=== PATIENT | female | born 1985 | race Caucasian/White ===

== ENCOUNTER 2016-11-11 13:31 | Emergency (ER) | payer SELFPAY ==
[~2016-11-11] VITALS: Ht 170.2 cm; Wt 68.0 kg
[2016-11-11] MEDS ORDERED: ALBU18HF IH (14:59)
[2016-11-11] MEDS ORDERED: SULF1TAB24 PO (14:59)
[2016-11-11] MEDS ORDERED: GUAI118L13 PO (14:59)
--- NOTE | 2016-11-11 15:02 | PHYS DOC ---
General Chief Complaint: COUGH Stated Complaint: COUGH/FEVER Time Seen by MD: 13:44 Source: patient, family Exam Limitations: no limitations Problems: History of Present Illness Initial Comments Patient is a 31-year-old female brought to the ED by her father with cough and fever. Patient states that for about 10 days she's had nasal congestion facial pain. She's had a cough for the past week dry initially with yellow thick purulent discharge. She has a sore throat for the past several days which has prevented her from eating solid foods however she tolerates liquids okay. She claims a fever last night with temperature of 104. She's had intermittent headaches and myalgias denies neck pain or stiffness no rash. Benj-rsh-qbkrqdk medications have helped some. She was seen on post earlier today rapid strep was negative and labs were drawn. She was advised to follow-up however does not wish to wait. In emergency department the patient is afebrile she has stable vital signs. Timing/Duration: 1 week, getting worse Severity: severe Associated Symptoms: cough, diaphoresis, fever/chills, headaches, malaise, other Allergies: Coded Allergies: No Known Drug Allergies (Unverified , 11/11/16) Past Medical History Medical History: asthma Surgical History: noncontributory Social History Smoker: non-smoker Alcohol: none Drugs: none Review of Systems Constitutional: see HPI Respiratory: see HPI Cardiovascular: denies chest pain, denies palpitations Gastrointestinal: denies nausea, denies vomiting Musculoskeletal: denies back pain, denies joint swelling, denies neck pain Psychiatric/Neurological: see HPI Physical Exam General Appearance: WD/WN, no apparent distress Eyes: bilateral eye normal inspection, bilateral eye PERRL, bilateral eye abnormal EOM Ear, Nose, Throat: hearing grossly normal, normal pharynx (green nasal and thick green postnasal drip with left sided pharyngeal erythema with exudate. Serous fluid noted bilaterally right greater than left, tonsils are absent no palpable access noted airway is patent. 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 Symptoms for over a week, fever and sinus infection/pharyngitis symptoms possibly viral but we will treat with antimicrobials. Patient agrees to follow-up with her doctor as scheduled. Departure Time of Disposition: 15:00 Disposition: HOME, SELF-CARE Diagnosis: left lower lobe pneumonia, history of asthma Condition: STABLE Patient Instructions: Pneumonia, Adult, Emkf-[id number] Additional Instructions: Off work through November 14, note given. Rest, no strenuous activity. Aggressive hydration with Gatorade or water. Mrzf-crq-[id number] Tylenol, ibuprofen, Benadryl as needed. Prescription: Bactrim DS, guaifenesin with codeine syrup, albuterol metered- dose inhaler, use as directed. Take medications with food to avoid nausea, vomiting, and GI discomfort. Increase fluid intake and take imqw-xty-owbowyx stool softeners to avoid opiate associated constipation. Follow-up with your doctor in 5-7 days for recheck. Return to ED with new or changing symptoms. MAISHA LAM DO Nov 11, 2016 15:02
[2016-11-11 15:10] VITALS: BP 122/73
== END 2016-11-11 15:10 | disposition home or self-care (01) ==
LOC: ER 13:31
DX: J18.9 Pneumonia, unspecified organism (principal); J45.909 Unspecified asthma, uncomplicated
CPT/HCPCS: 99283

== ENCOUNTER → 2016-11-24 | Outpatient (CLI) | payer SELFPAY ==
[2016-11-11 15:10] VITALS: BP 122/73
[~2016-11-24] MED LIST: ALBU18HF IH; GUAI118L13 PO; SULF1TAB24 PO
--- NOTE | 2016-11-24 10:27 | RAD ---
Examination: Frontal view of the chest with left RIBS History: History of pneumonia, heard a pop in the ribs, left rib pain Comparison: None available Findings: The cardiomediastinal silhouette grossly appears unremarkable. There is no acute infiltrate or visualized pneumothorax identified. No evidence of displaced left rib fracture identified. Impression: 1. No acute cardiopulmonary findings. 2. No evidence of displaced left rib fracture.
== END | disposition home or self-care (01) ==
LOC: DXRADRC 09:10
PROVIDERS: ATTEND Physician Assistant Medical
DX: R07.81 Pleurodynia (principal); Z87.01 Personal history of pneumonia (recurrent)
CPT/HCPCS: 71101

== ENCOUNTER 2017-11-19 22:11 | Emergency (ER) | payer SELFPAY ==
[~2017-11-19] VITALS: Ht 170.2 cm; Wt 70.3 kg
[2017-11-19 22:28] VITALS: BP 150/83
[2017-11-19] MEDS: predniSONE 20 MG TABLET PO ONE (22:54)
[2017-11-19] MEDS: IPRATRPIUM/ALBUTEROL 0.5/2.5MG 3 ML NEBU. NEB ONE (23:21)
[2017-11-19] MEDS ORDERED: ALBUTEROL SULFATE 8GM INHALER. ONE (23:24)
[2017-11-19] MEDS ORDERED: GUAI-105 PO (23:25)
[2017-11-19] MEDS ORDERED: PRED50TA PO (23:25)
[2017-11-19] MEDS ORDERED: PROM118S5 PO (23:25)
[2017-11-19] MEDS ORDERED: ALBUTEROL SULFATE 8GM INHALER. INH ONE (23:30)
--- NOTE | 2017-11-19 23:58 | RAD ---
PA and lateral chest radiographs 11/19/2017 Clinical History: Cough, congestion and fever. PA and lateral digital radiographs of the chest were obtained. Comparison study is dated 11/24/2016. The cardiac and mediastinal silhouettes are within normal limits in size and configuration. No pulmonary infiltrate is seen. No pleural effusion or pneumothorax is noted. The osseous structures are grossly intact. Impression: No radiographic evidence of active cardiopulmonary disease. Electronically signed by: Federico Perdomo MD (11/19/2017 11:55 PM) [facility]
--- NOTE | 2017-11-20 02:59 | ED.ADGEN ---
Past History Past Medical History: Asthma, Pneumonia Past Surgical History: Alcohol Use: Occasionally Drug Use: None Adult General Chief Complaint Chief Complaint Fever, cough HPI HPI Patient is a 32-year-old female with history of asthma who presents with fever, chills, myalgias or arthralgias and shortness of breath. Symptom onset 5 days ago. Is worse this evening with difficulty sleeping despite taking over-the- counter medications. No oher acute symptoms or complaints. Patient is a nonsmoker.[] Review of Systems Review of Systems Review symptoms as per history of present illness. All other review symptoms are negative All other systems were reviewed and found to be within normal limits, except as documented in this note. Current Medications Current Medications Current Medications Medications (Trade) Dose Ordered Sig/Sammy Start Time Stop Time Status Last Admin Dose Admin Albuterol Sulfate (Ventolin Hfa Inhaler) 1 puff 1X ONCE 11/19/17 23:30 11/20/17 00:01 DC Albuterol/ Ipratropium (Duoneb) 3 ml 1X ONCE 11/19/17 23:00 11/19/17 23:01 DC 11/19/17 23:21 3 ML Prednisone (Prednisone) 60 mg 1X ONCE 11/19/17 23:00 11/19/17 23:01 DC 11/19/17 22:54 60 MG Allergies Allergies Allergies Coded Allergies Type Severity Reaction Last Updated Verified No Known Drug Allergies 11/11/16 No Physical Exam Physical Exam Constitutional: Well developed, well nourished, no acute distress, non-toxic appearance. [] HENT: Normocephalic, atraumatic, bilateral external ears normal, oropharynx moist, no oral exudates, nose gesturing, rhinorrhea. [] Eyes: PERRLA, EOMI, conjunctiva normal, no discharge. [] Neck: Normal range of motion, no tenderness, supple, no stridor. [] Cardiovascular:Heart rate regular rhythm, no murmur [] Lungs & Thorax: Patient's nonlabored, mildly diminished breath sounds bilaterally coarse respiratory and expiratory wheezes[] Abdomen: Bowel sounds normal, soft, no tenderness, no masses, no pulsatile masses. [] Skin: Warm, dry, no erythema, no rash. [] Back: No tenderness, no CVA tenderness. [] Extremities: No tenderness, no cyanosis, no clubbing, ROM intact, no edema. [] Neurologic: Alert and oriented X 3, normal motor function, normal sensory function, no focal deficits noted. [] Psychologic: Affect normal, judgement normal, mood normal. [] Current Patient Data Vital Signs Vital Signs Date Time Temp Pulse Resp B/P (MAP) Pulse Ox O2 Delivery O2 Flow Rate FiO2 11/19/17 23:21 99 Room Air 11/19/17 22:28 99.6 85 20 EKG EKG [] Radiology/Procedures Radiology/Procedures [] Course & Med Decision Making Course & Med Decision Making Pertinent Labs and Imaging studies reviewed. (See chart for details) [Significant improvement with treatment. Will continue supportive care with PCP follow-up. Return precautions reviewed.] Final Impression Final Impression [#1 upper respiratory tract infection #2 asthma exacerbation] Dragon Disclaimer Dragon Disclaimer This electronic medical record was generated, in whole or in part, using a voice recognition dictation system. ACE LARA DO Nov 20, 2017 02:59
== END 2017-11-19 23:57 | disposition home or self-care (01) ==
LOC: ER 22:11
DX: J06.9 Acute upper respiratory infection, unspecified (principal); J45.901 Unspecified asthma with (acute) exacerbation
CPT/HCPCS: 71046; 94640; 99284; J7512; J7620

== ENCOUNTER 2020-01-11 07:26 | Emergency (ER) | payer SELFPAY ==
[~2020-01-11] VITALS: Ht 170.2 cm; Wt 59.0 kg
[~2020-01-11 07:26] MED LIST changes: -ALBU18HF IH; +ALBU2.5V8 IH; +GUAI-105 PO; +PRED50TA PO; +PROM118S5 PO
[2020-01-11 07:30] VITALS: BP 122/88
--- NOTE | 2020-01-11 08:10 | PHYS DOC ---
Past History Past Medical History: Asthma, Pneumonia Past Surgical History: (X2), Other (Carpal tunnel) Alcohol Use: Occasionally Drug Use: None Adult General Chief Complaint Chief Complaint: ABDOMINAL PAIN HPI HPI Patient is a pleasant 34-year-old female who presents with right upper quadrant pain. Onset was approximately 11 days ago without any known inciting event or trauma. Patient has been utilizing heating pad and alternating Tylenol, ibu profen, and recently incorporated probiotics into her daily routine without significant relief. Eating makes worse. Pain is sharp and focal to right upper quadrant without radiation. Timing of symptoms has waxed and waned. This has been affecting her throughout the day and her ability to sleep. She is unsure if certain foods make worse that she has been afraid to eat anything over the past 24 to 48 hours. She has been afebrile, has no significant past medical issues, is not on any blood thinners, no COVID-19 contact Review of Systems Review of Systems Fourteen body systems of review of systems have been reviewed. See HPI for pertinent positives and negative responses, other drake all other systems are negative, non-pertinent or non-contributory Allergies Allergies Allergies Coded Allergies Type Severity Reaction Last Updated Verified No Known Drug Allergies 11/11/16 No Physical Exam Physical Exam Constitutional: Well developed, well nourished, no acute distress, non-toxic appearance. HENT: Normocephalic, atraumatic, bilateral external ears normal, oropharynx moist, no oral exudates, nose normal. Eyes: PERRLA, EOMI, conjunctiva normal, no discharge. Neck: Normal range of motion, no tenderness, supple, no stridor. Cardiovascular: Heart rate regular, sinus rhythm, no murmurs rubs or gallops Lungs & Thorax: Bilateral breath sounds clear to auscultation Abdomen: Bowel sounds normal, soft, right upper quadrant tenderness to palpation positive Christy sign without guarding or rebound, negative Rovsing sign, negative McBurney point tenderness, no masses, no pulsatile masses. Nonsurgical abdomen, no peritoneal signs Skin: Warm, dry, no erythema, no rash. Back: No tenderness, no CVA tenderness. Extremities: No tenderness, no cyanosis, no clubbing, ROM intact, no edema. Neurologic: Alert and oriented X 3, grossly normal motor & sensory function, no focal deficits noted. Psychologic: Affect normal, judgement normal, mood normal. Current Patient Data Vital Signs Vital Signs Date Time Temp Pulse Resp B/P (MAP) Pulse Ox O2 Delivery O2 Flow Rate FiO2 01/11/20 07:30 97.9 118 16 122/88 (99) 98 Room Air EKG EKG [] Radiology/Procedures Radiology/Procedures PROCEDURE: ABDOMEN LTD EXAM: ABDOMINAL ULTRASOUND. HISTORY: Right upper quadrant abdominal pain. COMPARISON: None. FINDINGS: Sonographic evaluation of the right upper quadrant abdomen was performed. The liver appears normal in parenchymal echotexture. There are no focal lesions. Gallbladder contains both sludge and multiple large shadowing gallstones, measuring up to 2.7 cm in diameter. There is a positive sonographic Christy sign. Gallbladder wall is mildly thickened to 3.8 mm. The common duct measures 3 mm. The visualized portions of the head of the pancreas reveal no abnormality. The right kidney measures 10.6 x 4.8 x 4.3 cm. Cortical thickness and echogenicity are preserved. There is mild right hydronephrosis. Visualized portion of the IVC is normal. IMPRESSION: 1. Sonographic findings consistent with acute cholecystitis. Electronically signed by: Rony Alva MD (01/11/2020 8:43 AM) [id number] Heart Score HEART Score for Chest Pain: HEART Score for Chest Pain Response (Comments) Value History Slighlty/Non-Suspicious 0 ECG Normal 0 Age < 45 0 Risk Factors No Risk Factors 0 Total 0 Risk Factors: Risk Factors: DM, Current or recent (<one month) smoker, HTN, HLP, family history of CAD, obesity. Risk Scores: Risk Factors: DM, Current or recent (<one month) smoker, HTN, HLP, family history of CAD, obesity. Course & Med Decision Making Course & Med Decision Making Pertinent Labs and Imaging studies reviewed. (See chart for details) Discussed most likely diagnosis of acute cholecystitis. On-call surgeon at [facility] called and case discussed. Given patient is hemodynamically stable, well-appearing and nontoxic; joint decision made to discharge home with extremely close outpatient follow-up with planned surgical intervention to follow I discussed proposed plan of care with patient. She was also amenable to this, she would like time to find childcare and deal with family matters at home prior to surgical intervention and much prefers discharge home with extremely close follow-up. With all of this said, I did stress the severity of this diagnosis and importance of extremely close follow-up and surgical removal of her gallbladder. Extremely strict return precautions were discussed with good understanding, all questions and concerns addressed prior to ER departure Tarun Disclaimer Tarun Disclaimer This electronic medical record was generated, in whole or in part, using a voice recognition dictation system. Departure Departure: Impression: Primary Impression: Acute cholecystitis Disposition: 01 DC HOME SELF CARE/HOMELESS Condition: STABLE Referrals: PCP,HERB (PCP) JLUIS COOL MD This is the surgeon I spoke to at [facility]. Please call immediately after ER departure to schedule outpatient follow-up and surgical removal of your gallbladder Patient Instructions: Cholecystitis Additional Instructions: Please see the attached resources regarding cholecystitis Also, please see the information for Dr. Jluis Henry. He is the surgeon I spoke to at [facility]. Please call number provided to schedule outpatient follow-up in surgical intervention for your gallbladder As discussed at length prior to ER departure, please report immediately to [facility] ER if any concerning signs or symptoms present prior to outpatient follow-up/surgical removal It was a pleasure to take care of you and I wish you a speedy recovery! JUDY COOL DO Jan 11, 2020 08:10
[2020-01-11 08:21] LABS: BASO # 0.1 x10^3/uL (0.0-0.2); BASO % 1 % (0-3); EOS # 0.3 x10^3/uL (0.0-0.7); EOS % 3 % (0-3); HEMOGLOBIN 17.1 g/dL (12.0-15.5); LYMPH # 1.7 x10^3/uL (1.0-4.8); LYMPH % 20 % (24-48); MEAN CORPUSCULAR HEMOGLOBIN 31 pg (25-35); MEAN CORPUSCULAR HGB CONC 34 g/dL (31-37); MEAN CORPUSCULAR VOLUME 93 fL (79-100); MONO # 0.5 x10^3/uL (0.0-1.1); MONO % 6 % (0-9); NEUT # 5.9 x10^3uL (1.8-7.7); NEUT % 71 % (31-73); PLATELET COUNT 348 x10^3/uL (140-400); RED BLOOD COUNT 5.47 x10^6/uL (3.50-5.40); RED CELL DISTRIBUTION WIDTH 13.9 % (11.5-14.5); WHITE BLOOD COUNT 8.4 x10^3/uL (4.0-11.0)
[2020-01-11 08:27] LABS: CALCIUM 9.3 mg/dL (8.5-10.1); CREATININE 0.9 mg/dL (0.6-1.0); GFR 72.1; POTASSIUM 3.6 mmol/L (3.5-5.1)
[2020-01-11 08:29] LABS: BILIRUBIN,URINE NEG (NEG); CLARITY,URINE CLEAR; COLOR,URINE YELLOW; GLUCOSE,URINE NEG (NEG)
[2020-01-11 08:30] LABS: BACTERIA,URINE 0 /HPF (0-FEW); NITRITE,URINE NEG (NEG); RBC,URINE OCC /HPF (0-2); SQUAMOUS EPITHELIAL CELL,UR MOD /LPF; UROBILINOGEN,URINE 0.2 mg/dL (0.2 mg/dL); WBC,URINE 0 /HPF (0-4)
[2020-01-11 08:33] LABS: ALBUMIN 4.4 g/dL (3.4-5.0); ALBUMIN/GLOBULIN RATIO 1.2 (1.0-1.7); TOTAL BILIRUBIN 0.4 mg/dL (0.2-1.0); TOTAL PROTEIN 8.1 g/dL (6.4-8.2)
--- NOTE | 2020-01-11 08:45 | RAD ---
EXAM: ABDOMINAL ULTRASOUND. HISTORY: Right upper quadrant abdominal pain. COMPARISON: None. FINDINGS: Sonographic evaluation of the right upper quadrant abdomen was performed. The liver appears normal in parenchymal echotexture. There are no focal lesions. Gallbladder contains both sludge and multiple large shadowing gallstones, measuring up to 2.7 cm in diameter. There is a positive sonographic Christy sign. Gallbladder wall is mildly thickened to 3.8 mm. The common duct measures 3 mm. The visualized portions of the head of the pancreas reveal no abnormality. The right kidney measures 10.6 x 4.8 x 4.3 cm. Cortical thickness and echogenicity are preserved. There is mild right hydronephrosis. Visualized portion of the IVC is normal. IMPRESSION: 1. Sonographic findings consistent with acute cholecystitis. Electronically signed by: Rony Alva MD (01/11/2020 8:43 AM) [id number]
== END 2020-01-11 10:06 | disposition home or self-care (01) ==
LOC: ER 07:26
DX: K81.0 Acute cholecystitis (principal); J45.909 Unspecified asthma, uncomplicated; Z98.890 Other specified postprocedural states
CPT/HCPCS: 36415; 76705; 80053; 81001; 81025; 83690; 85025; 85610; 85730; 99284